=== PATIENT | female | born 1990 | race African-American/Black ===

== ENCOUNTER 2016-04-29 23:59 | Emergency (ER) | payer OTHER ==
--- NOTE | ~2016-04-29 | EKG ---
PATIENT: ROBYN BENTLEY UNIT #: [id number] Ventricular Rate: 68 BPM Atrial Rate: 68 BPM P-R Interval: 192 ms QRS Duration: 84 ms Q-T Interval: 376 ms QTC Calculation(Bezet): 399 ms P [place]: 12 degrees Calculated R [place]: 29 degrees Calculated T [place]: 21 degrees Diagnosis Line: Normal sinus rhythm Diagnosis Line: Normal ECG Diagnosis Line: When compared with ECG of 10-OCT-2015 08:50, Diagnosis Line: Vent. rate has decreased BY 43 BPM Diagnosis Line: Confirmed by SERVANDO SOLANO MD ([id number]) on Diagnosis Line: 04/30/2016 10:52:41 PM INTERPRETING MD: SHAAN
[~2016-04-29 23:59] MED LIST: ATENOLOL; HCTZ; NO MEDICATIONS; XANAX PO
== END 2016-04-30 00:14 | disposition home or self-care (01) ==
LOC: CFTX 23:59
DX: F41.1 Generalized anxiety disorder (principal); I10 Essential (primary) hypertension; E05.90 Thyrotoxicosis, unspecified without thyrotoxic crisis or storm
CPT/HCPCS: 93005; 99283

== ENCOUNTER 2016-05-29 06:00 | Emergency (ER) | payer OTHER ==
--- NOTE | ~2016-05-29 | EKG ---
PATIENT: ROBYN BENTLEY UNIT #: [id number] Ventricular Rate: 105 BPM Atrial Rate: 105 BPM P-R Interval: 184 ms QRS Duration: 74 ms Q-T Interval: 332 ms QTC Calculation(Bezet): 438 ms P [place]: 38 degrees Calculated R [place]: 10 degrees Calculated T [place]: 16 degrees Diagnosis Line: Sinus tachycardia Diagnosis Line: Poor R wave progression questionable lead position Diagnosis Line: or body habitus Diagnosis Line: Abnormal ECG Diagnosis Line: When compared with ECG of 29-APR-2016 23:57, Diagnosis Line: Vent. rate has increased BY 37 BPM Diagnosis Line: Confirmed by MUKESH HAYNES MD ([id number]) on 05/29/2016 Diagnosis Line: 11:02:34 PM INTERPRETING MD: IVY GUZMAN
[2016-05-29 03:46] LABS: URINE SOURCE CLEAN CATCH
[2016-05-29 03:56] LABS: URINE APPEARANCE CLEAR; URINE BILIRUBIN NEG (NEG); URINE BLOOD NEG (NEG); URINE COLOR YELLOW; URINE GLUCOSE NEG (NEG); URINE KETONE NEG (NEG); URINE LEUKOCYTE ESTERASE NEG (NEG); URINE NITRATE NEG (NEG); URINE PH 6.5 (5-8); URINE PROTEIN NEG (NEG); URINE SPECIFIC GRAVITY 1.019 (1.003-1.035)
[2016-05-29 04:03] LABS: CULTURE INDICATED? NO
[2016-05-29 04:13] LABS: AMPHETAMINE NEG (NEG); BARBITURATES NEG (NEG); BENZODIAZEPINES NEG (NEG); COCAINE NEG (NEG); MARIJUANA NEG (NEG); OPIATES NEG (NEG); TRICYCLIC ANTIDEPRESSANTS NEG (NEG); U METHADONE NEG (NEG)
== END 2016-05-29 06:05 | disposition home or self-care (01) ==
LOC: CED 06:00
PROVIDERS: Student in an Organized Health Care Education/Training Program
DX: R00.2 Palpitations (principal); Z76.0 Encounter for issue of repeat prescription; I10 Essential (primary) hypertension; F41.9 Anxiety disorder, unspecified
CPT/HCPCS: 80307; 81003; 84703; 93005; 99283